=== PATIENT | female | born 1995 | race Caucasian/White ===

== ENCOUNTER → 2016-10-09 | Outpatient (REF) | payer BC | LOC: M SFHCWAGY 13:28 | PROVIDERS: ATTEND Nurse Practitioner Women's Health | DX: Z12.4 Encounter for screening for malignant neoplasm of cervix (principal) ==

== ENCOUNTER → 2017-10-11 | Outpatient (REF) | payer BC | LOC: M SFHCWAGY 15:08 | DX: Z12.4 Encounter for screening for malignant neoplasm of cervix (principal) | CPT/HCPCS: G0123 ==

== ENCOUNTER 2020-03-25 13:27 | Emergency (ER) | payer BC ==
[~2020-03-25] VITALS: Ht 167.6 cm; Wt 96.3 kg
[2020-03-25] MEDS ORDERED: LOW-1TAB2 PO (13:34)
[2020-03-25] MEDS ORDERED: ONDANSETRON 4MG/2ML VIAL IV ONE (14:30)
[2020-03-25 14:36] LABS: BASO % 0.4 % (0.0-1.0); EOS # 0.1 10^3/uL (0.0-0.5); EOS % 0.9 % (0.0-3.0); HEMOGLOBIN 13.3 g/dl (12.0-15.5); LYMPH # 1.6 10^3/uL (1.5-5.0); LYMPH % 22.4 % (24.0-44.0); MEAN CORPUSCULAR HEMOGLOBIN 30.4 pg (27.0-33.0); MEAN CORPUSCULAR HGB CONC 34.1 g/dl (32.0-36.5); MONO # 0.5 10^3/uL (0.0-0.8); MONO % 6.4 % (0.0-5.0); NEUTROPHILS # 4.9 10^3/uL (1.5-8.5); NEUTROPHILS % 69.6 % (36.0-66.0); PLATELET COUNT, AUTOMATED 219 10^3/uL (150-450); RED BLOOD COUNT 4.38 10^6/uL (4.00-5.40)
[2020-03-25 15:01] LABS: ALBUMIN 3.8 GM/DL (3.2-5.2); BILIRUBIN,DIRECT 0.1 MG/DL (0.0-0.2); BILIRUBIN,TOTAL 0.3 MG/DL (0.2-1.0); C REACTIVE PROTEIN QUANTITATIV 0.55 MG/DL (0.00-0.30); TOTAL PROTEIN 7.9 GM/DL (6.4-8.2)
[2020-03-25 16:12] LABS: ERYTHROCYTE SEDIMENTATION RATE 26 mm/hr (0-20)
[2020-03-25] MEDS ORDERED: ONDA4TAB6 PO (16:37)
[2020-03-25] MEDS ORDERED: PROT20TA11 PO (16:37)
[2020-03-25 17:13] VITALS: BP 125/65
== END 2020-03-25 17:17 | disposition home or self-care (01) ==
LOC: M ED 13:27
DX: R11.2 Nausea with vomiting, unspecified (principal); R19.7 Diarrhea, unspecified; K29.70 Gastritis, unspecified, without bleeding; Z88.1 Allergy status to other antibiotic agents
CPT/HCPCS: 80047; 80076; 83690; 84702; 85025; 85652; 86140; 96374; 99284; J2405

== ENCOUNTER → 2020-03-27 | Outpatient (REF) | payer BC ==
[~2020-03-27] MED LIST: DICY10CA13 PO; LOW-1TAB2 PO; ONDA4TAB6 PO; PROT20TA11 PO; VANC1CAP6 PO
== END ==
LOC: M LAB 19:33
PROVIDERS: ATTEND Nurse Practitioner Family
DX: R19.7 Diarrhea, unspecified (principal)

== ENCOUNTER → 2020-05-03 | Outpatient (REF) | payer BC | LOC: M SFHCCLAY 11:20 | PROVIDERS: ATTEND Nurse Practitioner Family | DX: R35.0 Frequency of micturition (principal) ==

== ENCOUNTER → 2020-05-25 | Outpatient (REF) | payer BC | LOC: M SFHCCLAY 16:12 | PROVIDERS: ATTEND Family Medicine | DX: A04.72 Enterocolitis due to Clostridium difficile, not specified as recurrent (principal) ==

== ENCOUNTER 2020-05-26 14:34 | Emergency (ER) | payer BC ==
[~2020-05-26] VITALS: Ht 167.6 cm; Wt 95.3 kg
[2020-05-26 14:34] VITALS: BP 143/87
[~2020-05-26 14:34] MED LIST changes: -DICY10CA13 PO; -VANC1CAP6 PO
[2020-05-26] MEDS ORDERED: NS 1,000 ML IV ONE (16:15)
[2020-05-26] MEDS ORDERED: DICYCLOMINE 10 MG CAP PO ONE (16:15)
[2020-05-26 16:59] LABS: BASO % 0.3 % (0.0-1.0); EOS # 0.1 10^3/uL (0.0-0.5); EOS % 0.7 % (0.0-3.0); HEMOGLOBIN 13.8 g/dl (12.0-15.5); LYMPH # 1.7 10^3/uL (1.5-5.0); MEAN CORPUSCULAR HEMOGLOBIN 29.4 pg (27.0-33.0); MEAN CORPUSCULAR HGB CONC 32.9 g/dl (32.0-36.5); MEAN CORPUSCULAR VOLUME 89.6 fl (80.0-96.0); MONO # 0.9 10^3/uL (0.0-0.8); MONO % 7.9 % (0.0-5.0); NEUTROPHILS # 8.7 10^3/uL (1.5-8.5); NEUTROPHILS % 75.6 % (36.0-66.0); PLATELET COUNT, AUTOMATED 224 10^3/uL (150-450); RED BLOOD COUNT 4.69 10^6/uL (4.00-5.40); WHITE BLOOD COUNT 11.4 10^3/uL (4.0-10.0)
--- NOTE | 2020-05-26 17:20 | REP ---
INDICATION: Abdominal Pain COMPARISON: None. TECHNIQUE: Upright view of the chest with supine and upright views of the abdomen and pelvis. FINDINGS: Frontal upright view of the chest demonstrates no acute cardiopulmonary process or free air below the diaphragm to suspect pneumoperitoneum. Supine and upright views of the abdomen and pelvis demonstrate nonspecific bowel gas pattern without obstruction or perforation. No organomegaly. No abnormal calcifications. Skeletal structures normal for age. IMPRESSION: Nonspecific bowel gas pattern. <Electronically signed by Bunny Putnam > 05/26/20 [id number]
[2020-05-26 17:21] LABS: ALBUMIN 3.7 GM/DL (3.2-5.2); BILIRUBIN,DIRECT 0.1 MG/DL (0.0-0.2); BILIRUBIN,TOTAL 0.4 MG/DL (0.2-1.0); TOTAL PROTEIN 8.2 GM/DL (6.4-8.2)
[2020-05-26] MEDS ORDERED: ISOVUE-370 76% 100ML VIAL As Ordered ONE (18:06)
[2020-05-26] MEDS ORDERED: KETOROLAC 30 MG/ML 1ML VIAL IV ONE (18:15)
--- NOTE | 2020-05-26 18:41 | REPVR ---
PROCEDURE INFORMATION: Exam: CT Abdomen And Pelvis With Contrast Exam date and time: 05/26/2020 6:14 PM Age: 24 years old Clinical indication: Abnormal findings; Abnormal lab test; Elevated wbc; Additional info: Elev. Wbc, diffuse abd pain, diarrhea TECHNIQUE: Imaging protocol: Computed tomography of the abdomen and pelvis with intravenous contrast. Axial, coronal and sagittal reformatted images were created and reviewed. Radiation optimization: All CT scans at this facility use at least one of these dose optimization techniques: automated exposure control; mA and/or kV adjustment per patient size (includes targeted exams where dose is matched to clinical indication); or iterative reconstruction. Contrast material: ISOVUE 370; Contrast volume: 100 ml; Contrast route: INTRAVENOUS (IV); COMPARISON: CT ABD PELVIS W/O CONTRAST 06/07/2015 8:27 AM FINDINGS: Mediastinal space: Small hiatal hernia. Liver: Unremarkable. Gallbladder and bile ducts: No radiodense gallstones. No biliary ductal dilatation. Pancreas: Unremarkable. Spleen: Unremarkable. Adrenal glands: Normal. No mass. Kidneys and ureters: No mass. No radiodense calculi. No hydronephrosis. Stomach and bowel: Mild, diffuse colonic wall thickening with associated mural and pericolonic edema. No obstruction. No pneumatosis. Appendix: Normal. Intraperitoneal space: No free fluid. No organized fluid collection. No free air. Vasculature: Unremarkable. No aneurysm. Lymph nodes: Small mesenteric lymph nodes, likely reactive. No pathologically enlarged lymph nodes. Urinary bladder: Mild circumferential urinary bladder wall thickening, likely secondary to underdistention. Reproductive: Unremarkable. Bones/joints: No acute osseous abnormality. Soft tissues: Unremarkable. IMPRESSION: 1. Mild nonspecific pancolitis, as described above. 2. Additional findings, as above. Electronically signed by: Dakota Rizo On 05/26/2020 18:40:36 PM
[2020-05-26] MEDS ORDERED: VANCOMYCIN ORAL SOL 250MG/5ML ORAL SYRINGE PO STA (18:57)
[2020-05-26] MEDS ORDERED: DICY10CA13 PO (19:02)
[2020-05-26] MEDS ORDERED: VANC1CAP6 PO (19:02)
== END 2020-05-26 19:39 | disposition home or self-care (01) ==
LOC: M ED 14:34
DX: K51.019 Ulcerative (chronic) pancolitis with unspecified complications (principal); R10.84 Generalized abdominal pain; R19.7 Diarrhea, unspecified; Z88.2 Allergy status to sulfonamides; Z79.899 Other long term (current) drug therapy
CPT/HCPCS: 74021; 74177; 80047; 80076; 81001; 83605; 83690; 84702; 85025; 96361; 96374; 99283; J1885; Q9967

== ENCOUNTER → 2020-08-19 | Outpatient (REF) | payer BC ==
[~2020-08-19] MED LIST changes: +DICY10CA13 PO; +VANC1CAP6 PO
[2020-08-19 16:34] LABS: HEMATOCRIT 41.7 % (36.0-47.0); HEMOGLOBIN 13.8 g/dl (12.0-15.5); MEAN CORPUSCULAR HEMOGLOBIN 30.1 pg (27.0-33.0); MEAN CORPUSCULAR HGB CONC 33.1 g/dl (32.0-36.5); MEAN CORPUSCULAR VOLUME 90.8 fl (80.0-96.0); PLATELET COUNT, AUTOMATED 208 10^3/uL (150-450); RED BLOOD COUNT 4.59 10^6/uL (4.00-5.40)
[2020-08-19 17:11] LABS: BLOOD UREA NITROGEN 9 MG/DL (7-18); CALCIUM LEVEL 9.6 MG/DL (8.5-10.1); CARBON DIOXIDE LEVEL 29 MEQ/L (21-32); CHLORIDE LEVEL 107 MEQ/L (98-107); CREATININE FOR GFR 0.84 MG/DL (0.55-1.30); FREE T4 0.93 NG/DL (0.76-1.46); GLOMERULAR FILTRATION RATE > 60.0 (>60); GLUCOSE, FASTING 92 MG/DL (70-100); POTASSIUM SERUM 4.7 MEQ/L (3.5-5.1); SODIUM LEVEL 141 MEQ/L (136-145); THYROID STIMULATING HORMONE 0.888 uIU/ML (0.358-3.740)
== END ==
LOC: M SFHCCLAY 11:47
PROVIDERS: ATTEND Family Medicine
DX: F32.0 Major depressive disorder, single episode, mild (principal)

== ENCOUNTER → 2020-09-12 | Outpatient (REF) | payer BC ==
[2020-09-12 12:21] LABS: BLOOD UREA NITROGEN 10 MG/DL (7-18); CALCIUM LEVEL 9.4 MG/DL (8.5-10.1); CARBON DIOXIDE LEVEL 26 MEQ/L (21-32); CHLORIDE LEVEL 107 MEQ/L (98-107); CREATININE FOR GFR 0.98 MG/DL (0.55-1.30); GLOMERULAR FILTRATION RATE > 60.0 (>60); GLUCOSE, FASTING 121 MG/DL (70-100); POTASSIUM SERUM 3.9 MEQ/L (3.5-5.1); SODIUM LEVEL 140 MEQ/L (136-145)
== END ==
LOC: M SFHCCLAY 08:56
PROVIDERS: ATTEND Family Medicine
DX: F32.0 Major depressive disorder, single episode, mild (principal)

== ENCOUNTER → 2020-12-14 | Outpatient (REF) | payer BC | LOC: M SFHCWAGY 12:52 | PROVIDERS: ATTEND Nurse Practitioner Women's Health | DX: Z11.3 Encounter for screening for infections with a predominantly sexual mode of transmission (principal); Z12.4 Encounter for screening for malignant neoplasm of cervix; Z01.419 Encounter for gynecological examination (general) (routine) without abnormal findings ==

== ENCOUNTER → 2021-10-19 | Outpatient (REF) | payer BC, OTHER | LOC: M SFHCCLAY 15:29 | PROVIDERS: ATTEND Family Medicine | DX: K52.9 Noninfective gastroenteritis and colitis, unspecified (principal) ==

== ENCOUNTER → 2021-10-26 | Outpatient (REF) | payer BC, OTHER ==
[2021-10-26 17:14] LABS: CLOSTRIDIUM DIFFICILE PCR POSITIVE (NEGATIVE)
== END ==
LOC: M SFHCPLAZ 15:44
PROVIDERS: ATTEND Family Medicine
DX: R19.7 Diarrhea, unspecified (principal)

== ENCOUNTER 2022-03-30 07:51 | Emergency (ER) | payer OTHER ==
[~2022-03-30] VITALS: Ht 167.6 cm; Wt 86.4 kg
[2022-03-30] MEDS ORDERED: NS 1,000 ML IV ONE (08:10)
[2022-03-30] MEDS ORDERED: MORPHINE 2 MG/ML 1ML VIAL IV PRN (08:10)
[2022-03-30] MEDS ORDERED: ONDANSETRON 4MG 2ML VIAL IV ONE (08:10)
[2022-03-30] MEDS ORDERED: KETOROLAC 30 MG/ML 1ML VIAL IV ONE (08:10)
[2022-03-30] MEDS ORDERED: ISOVUE-370 76% 100ML VIAL As Ordered ONE (08:35)
[2022-03-30 08:44] LABS: BASO % 0.6 % (0.0-1.0); EOS # 0.2 10^3/uL (0.0-0.5); HEMATOCRIT 37.4 % (36.0-47.0); HEMOGLOBIN 12.6 g/dl (12.0-15.5); LYMPH # 1.1 10^3/uL (1.5-5.0); LYMPH % 20.7 % (24.0-44.0); MEAN CORPUSCULAR HEMOGLOBIN 29.9 pg (27.0-33.0); MEAN CORPUSCULAR HGB CONC 33.7 g/dl (32.0-36.5); MEAN CORPUSCULAR VOLUME 88.6 fl (80.0-96.0); MONO # 0.7 10^3/uL (0.0-0.8); MONO % 12.8 % (2.0-8.0); NEUTROPHILS # 3.4 10^3/uL (1.5-8.5); NEUTROPHILS % 61.7 % (36.0-66.0); PLATELET COUNT, AUTOMATED 215 10^3/uL (150-450); RED BLOOD COUNT 4.22 10^6/uL (4.00-5.40); WHITE BLOOD COUNT 5.5 10^3/uL (4.0-10.0)
[2022-03-30 08:55] LABS: INR 0.92; PARTIAL THROMBOPLASTIN TIME 27.9 SECONDS (25.9-37.0); PROTHROMBIN TIME 12.7 SECONDS (12.7-14.5)
[2022-03-30 09:28] LABS: ALBUMIN 3.6 GM/DL (3.2-5.2); BILIRUBIN,DIRECT 0.1 MG/DL (0.0-0.2); BILIRUBIN,TOTAL 0.4 MG/DL (0.2-1.0); TOTAL PROTEIN 7.4 GM/DL (6.4-8.2)
[2022-03-30] MEDS ORDERED: ONDA4TAB6 PO (09:48)
[2022-03-30] MEDS ORDERED: KETO10TAB PO (09:49)
[2022-03-30] MEDS ORDERED: PERC5TAB12 PO (09:49)
[2022-03-30 10:03] VITALS: BP 102/55
== END 2022-03-30 11:05 | disposition home or self-care (01) ==
LOC: M ED 07:51
DX: K80.20 Calculus of gallbladder without cholecystitis without obstruction (principal); K76.0 Fatty (change of) liver, not elsewhere classified; K44.9 Diaphragmatic hernia without obstruction or gangrene; Z86.718 Personal history of other venous thrombosis and embolism; Z88.2 Allergy status to sulfonamides; Z79.899 Other long term (current) drug therapy
CPT/HCPCS: 71045; 71275; 74177; 76705; 80047; 80076; 82150; 83690; 84484; 85025; 85610; 85730; 87040; 93005; 96361; 96374; 96375; 99284; J1885; J2405; Q9967

== ENCOUNTER 2022-04-13 01:50 | Emergency (ER) | payer OTHER ==
[~2022-04-13] VITALS: Ht 167.6 cm; Wt 86.4 kg
[~2022-04-13 01:50] MED LIST changes: +KETO10TAB PO; +PERC5TAB12 PO
[2022-04-13] MEDS ORDERED: ONDANSETRON 4MG 2ML VIAL IV ONE ×2 (02:30→03:50)
[2022-04-13] MEDS ORDERED: MORPHINE 4 MG/ML 1ML VIAL/SYRINGE IV ONE ×2 (02:30→03:50)
[2022-04-13] MEDS ORDERED: KETOROLAC 30 MG/ML 1ML VIAL IV ONE (02:30)
[2022-04-13 02:51] LABS: BASO % 0.4 % (0.0-1.0); EOS # 0.1 10^3/uL (0.0-0.5); EOS % 2.3 % (0.0-3.0); HEMATOCRIT 37.7 % (36.0-47.0); HEMOGLOBIN 12.8 g/dl (12.0-15.5); LYMPH # 1.7 10^3/uL (1.5-5.0); LYMPH % 32.4 % (24.0-44.0); MEAN CORPUSCULAR HEMOGLOBIN 29.4 pg (27.0-33.0); MEAN CORPUSCULAR VOLUME 86.5 fl (80.0-96.0); MONO # 0.6 10^3/uL (0.0-0.8); MONO % 11.7 % (2.0-8.0); NEUTROPHILS # 2.8 10^3/uL (1.5-8.5); PLATELET COUNT, AUTOMATED 209 10^3/uL (150-450); RED BLOOD COUNT 4.36 10^6/uL (4.00-5.40); WHITE BLOOD COUNT 5.2 10^3/uL (4.0-10.0)
[2022-04-13 03:26] LABS: ALBUMIN 3.8 GM/DL (3.2-5.2); ALT/SGPT 10 U/L (12-78); BILIRUBIN,DIRECT 0.1 MG/DL (0.0-0.2); BILIRUBIN,TOTAL 0.3 MG/DL (0.2-1.0); BLOOD UREA NITROGEN 15 MG/DL (7-18); CALCIUM LEVEL 9.2 MG/DL (8.5-10.1); CARBON DIOXIDE LEVEL 26 MEQ/L (21-32); CHLORIDE LEVEL 107 MEQ/L (98-107); CREATININE FOR GFR 0.88 MG/DL (0.55-1.30); GLOMERULAR FILTRATION RATE > 60.0 (>60); GLUCOSE, FASTING 99 MG/DL (70-100); LIPASE 114 U/L (73-393); SODIUM LEVEL 139 MEQ/L (136-145); TOTAL PROTEIN 7.9 GM/DL (6.4-8.2)
[2022-04-13] MEDS ORDERED: METOCLOPRAMIDE INJ 10MG/2ML VIAL (J2765 PER 1) IV ONE (05:40)
[2022-04-13] MEDS ORDERED: ONDA4TAB6 PO (07:35)
[2022-04-13] MEDS ORDERED: KETO10TAB PO (07:37)
[2022-04-13 07:43] VITALS: BP 130/76
== END 2022-04-13 07:44 | disposition home or self-care (01) ==
LOC: M ED 01:50
DX: K80.51 Calculus of bile duct without cholangitis or cholecystitis with obstruction (principal); Z87.442 Personal history of urinary calculi; K58.9 Irritable bowel syndrome, unspecified; F10.10 Alcohol abuse, uncomplicated; Z88.2 Allergy status to sulfonamides; Z79.899 Other long term (current) drug therapy
CPT/HCPCS: 76705; 80048; 80076; 83690; 85025; 96374; 96375; 96376; 99284; J1885; J2270; J2405; J2765

== ENCOUNTER 2022-05-02 12:28 | Emergency (ER) | payer OTHER ==
[~2022-05-02] VITALS: Ht 167.6 cm; Wt 81.8 kg
[2022-05-02] MEDS ORDERED: MESA1.2T (12:41)
[2022-05-02] MEDS ORDERED: NS 1,000 ML IV ONE (13:50)
[2022-05-02] MEDS ORDERED: MORPHINE 4 MG/ML 1ML VIAL/SYRINGE IV ONE (13:50)
[2022-05-02] MEDS ORDERED: ONDANSETRON 4MG 2ML VIAL IV ONE (13:50)
[2022-05-02 14:03] LABS: BASO % 0.1 % (0.0-1.0); EOS # 0.1 10^3/uL (0.0-0.5); EOS % 0.9 % (0.0-3.0); HEMATOCRIT 39.8 % (36.0-47.0); HEMOGLOBIN 13.1 g/dl (12.0-15.5); LYMPH % 14.6 % (24.0-44.0); MEAN CORPUSCULAR HGB CONC 32.9 g/dl (32.0-36.5); MEAN CORPUSCULAR VOLUME 88.1 fl (80.0-96.0); MONO # 0.4 10^3/uL (0.0-0.8); MONO % 5.5 % (2.0-8.0); NEUTROPHILS # 5.3 10^3/uL (1.5-8.5); NEUTROPHILS % 78.6 % (36.0-66.0); PLATELET COUNT, AUTOMATED 182 10^3/uL (150-450); RED BLOOD COUNT 4.52 10^6/uL (4.00-5.40); WHITE BLOOD COUNT 6.7 10^3/uL (4.0-10.0)
[2022-05-02 14:31] LABS: BILIRUBIN,DIRECT 0.1 MG/DL (0.0-0.2); BILIRUBIN,TOTAL 0.4 MG/DL (0.2-1.0); TOTAL PROTEIN 8.2 GM/DL (6.4-8.2)
[2022-05-02] MEDS ORDERED: ISOVUE-370 76% 100ML VIAL As Ordered ONE (14:31)
[2022-05-02] MEDS ORDERED: ONDA4TAB6 PO (15:47)
[2022-05-02] MEDS ORDERED: KETO10TAB PO (15:48)
[2022-05-02 15:52] VITALS: BP 129/77
[2022-05-02] MEDS ORDERED: FLOM0.4C39 PO (23:42)
== END 2022-05-02 16:06 | disposition home or self-care (01) ==
LOC: EDBD 12:28 → M ED 12:28
DX: N20.1 Calculus of ureter (principal); N23 Unspecified renal colic; K80.20 Calculus of gallbladder without cholecystitis without obstruction; R31.9 Hematuria, unspecified; Z87.448 Personal history of other diseases of urinary system; Z88.2 Allergy status to sulfonamides; Z79.899 Other long term (current) drug therapy; Z79.01 Long term (current) use of anticoagulants
CPT/HCPCS: 74177; 80047; 80076; 81000; 81015; 83690; 84702; 85025; 96361; 96374; 96375; 99284; J2270; J2405; Q9967

== ENCOUNTER → 2022-06-07 | Outpatient (CLI) | payer OTHER ==
[~2022-06-07] MED LIST changes: +FLOM0.4C39 PO; +MESA1.2T
== END ==
LOC: M LABSMTC 11:46
PROVIDERS: ATTEND Anesthesiology
DX: Z01.812 Encounter for preprocedural laboratory examination (principal); Z11.52 Encounter for screening for COVID-19

== ENCOUNTER → 2022-06-08 | Outpatient (REF) | payer OTHER ==
[2022-06-08 15:00] LABS: HEMOGLOBIN 12.3 g/dl (12.0-15.5); MEAN CORPUSCULAR HEMOGLOBIN 29.7 pg (27.0-33.0); MEAN CORPUSCULAR HGB CONC 33.2 g/dl (32.0-36.5); MEAN CORPUSCULAR VOLUME 89.4 fl (80.0-96.0); PLATELET COUNT, AUTOMATED 245 10^3/uL (150-450); RED BLOOD COUNT 4.14 10^6/uL (4.00-5.40); WHITE BLOOD COUNT 6.4 10^3/uL (4.0-10.0)
[2022-06-08 15:20] LABS: BLOOD UREA NITROGEN 12 MG/DL (7-18); CARBON DIOXIDE LEVEL 27 MEQ/L (21-32); CHLORIDE LEVEL 108 MEQ/L (98-107); CREATININE FOR GFR 0.73 MG/DL (0.55-1.30); GLOMERULAR FILTRATION RATE > 60.0 (>60); GLUCOSE, FASTING 81 MG/DL (70-100); POTASSIUM SERUM 4.8 MEQ/L (3.5-5.1); SODIUM LEVEL 140 MEQ/L (136-145)
== END ==
LOC: M SFHCCLAY 09:47 → M LAB 09:47
PROVIDERS: ATTEND Family Medicine
DX: K52.9 Noninfective gastroenteritis and colitis, unspecified (principal); Z86.718 Personal history of other venous thrombosis and embolism

== ENCOUNTER 2022-06-12 09:00 | Day surgery (SDC) | payer OTHER ==
[~2022-06-12] VITALS: Ht 167.6 cm; Wt 100.9 kg
[~2022-06-12 09:00] MED LIST changes: +ceFAZolin SOD 2 GM in IV 1 EA IV ONE
[2022-06-12] MEDS ORDERED: LR 1,000 ML IV SCH ×2 (09:35→12:35)
[2022-06-12] MEDS ORDERED: BUPIVACAINE/EPIN 0.25% 30 ML VIAL As Ordered ONE (11:02)
[2022-06-12] MEDS ORDERED: fentaNYL 100 MCG/2 ML INJECTION As Ordered ONE ×2 (11:18→12:05)
[2022-06-12] MEDS ORDERED: propofoL 200 MG/20 ML VIAL As Ordered ONE ×3 (11:20→11:23)
[2022-06-12] MEDS ORDERED: MIDAZOLAM INJ 2MG/2ML VIAL (J2250 PER 1MG) As Ordered ONE (11:20)
[2022-06-12] MEDS ORDERED: SUGAMMADEX SODIUM 500 MG/5 ML VIAL (BRIDION) As Ordered ONE (12:20)
[2022-06-12] MEDS ORDERED: ONDANSETRON 4MG 2ML VIAL As Ordered ONE (12:28)
[2022-06-12] MEDS ORDERED: dexameTHASONE 4 MG/ML 1ML VIAL (J1100 PER 1MG) As Ordered ONE (12:28)
[2022-06-12] MEDS ORDERED: METOCLOPRAMIDE INJ 10MG/2ML VIAL (J2765 PER 1) As Ordered ONE (12:30)
[2022-06-12] MEDS ORDERED: KETOROLAC 60MG 2ML VIAL As Ordered ONE (12:30)
[2022-06-12] MEDS ORDERED: HYDROMORPHONE HCL 0.5 MG/ 0.5 ML SYRINGE (J1170 PER 1) IV PRN (12:35)
[2022-06-12] MEDS ORDERED: fentaNYL 100 MCG/2 ML INJECTION IV PRN (12:35)
[2022-06-12] MEDS ORDERED: METOCLOPRAMIDE INJ 10MG/2ML VIAL (J2765 PER 1) IV PRN (12:35)
[2022-06-12] MEDS ORDERED: ONDANSETRON 4MG 2ML VIAL IV PRN (12:35)
[2022-06-12] MEDS ORDERED: NS 1,000 ML IV SCH (13:15)
[2022-06-12] MEDS: oxyCODONE 5MG TAB PO PRN ×2 (13:19→13:48)
[2022-06-12 14:33] VITALS: BP 121/68
== END 2022-06-12 14:38 | disposition home or self-care (01) ==
LOC: M SDC 09:00
PROVIDERS: ATTEND Surgery
DX: K80.10 Calculus of gallbladder with chronic cholecystitis without obstruction (principal); K58.8 Other irritable bowel syndrome; Z86.718 Personal history of other venous thrombosis and embolism; Z79.899 Other long term (current) drug therapy; Z88.2 Allergy status to sulfonamides
CPT/HCPCS: 47562; 81025; 88304; J0690; J1100; J1885; J2250; J2405; J2765; J3010

== ENCOUNTER → 2023-02-12 | Outpatient (REF) | payer OTHER ==
[~2023-02-12] MED LIST changes: +DICY-61 PO; -DICY10CA13 PO; -ceFAZolin SOD 2 GM in IV 1 EA IV ONE
[2023-02-12 12:11] LABS: BASO % 0.8 % (0.0-1.0); EOS # 0.5 10^3/uL (0.0-0.5); EOS % 10.5 % (0.0-3.0); HEMATOCRIT 37.6 % (36.0-47.0); HEMOGLOBIN 12.5 g/dl (12.0-15.5); LYMPH # 1.8 10^3/uL (1.5-5.0); LYMPH % 34.9 % (24.0-44.0); MEAN CORPUSCULAR HGB CONC 33.2 g/dl (32.0-36.5); MEAN CORPUSCULAR VOLUME 90.2 fl (80.0-96.0); MONO # 0.5 10^3/uL (0.0-0.8); MONO % 9.1 % (2.0-8.0); NEUTROPHILS # 2.3 10^3/uL (1.5-8.5); NEUTROPHILS % 44.5 % (36.0-66.0); PLATELET COUNT, AUTOMATED 250 10^3/uL (150-450); RED BLOOD COUNT 4.17 10^6/uL (4.00-5.40); WHITE BLOOD COUNT 5.2 10^3/uL (4.0-10.0)
[2023-02-12 12:36] LABS: ALBUMIN 3.6 G/DL (3.2-5.2); ALKALINE PHOSPHATASE 105 U/L (46-116); ALT/SGPT < 9 U/L (7.0-40); AST/SGOT 11 U/L (<34); BILIRUBIN,TOTAL 0.3 MG/DL (0.3-1.2); BLOOD UREA NITROGEN 10 MG/DL (9-23); CALCIUM LEVEL 8.5 MG/DL (8.5-10.1); CARBON DIOXIDE LEVEL 24 MMOL/L (20-31); CHLORIDE LEVEL 108 MMOL/L (98-107); CREATININE FOR GFR 0.76 MG/DL (0.55-1.30); GLOMERULAR FILTRATION RATE > 60.0 (>60); GLUCOSE, FASTING 83 MG/DL (60-100); IRON (FE) 36 UG/DL (50-170); PERCENT SATURATION 10.1 % (13.2-45.0); POTASSIUM SERUM 4.6 MMOL/L (3.5-5.1); SODIUM LEVEL 141 MMOL/L (136-145); TOTAL IRON BINDING CAPACITY 355 UG/DL (250-425); TOTAL PROTEIN 7.2 G/DL (5.7-8.2)
[2023-02-12 12:37] LABS: HCG, SERUM QUANTITATIVE < 2.6 MIU/ML (<4.2); LUTEINIZING HORMONE 4.6 mIU/ML; THYROID STIMULATING HORMONE 2.473 uIU/ML (0.55-4.78)
[2023-02-12 12:38] LABS: FERRITIN 19.5 NG/ML (7.3-270.7); FOLLICLE STIMULATING HORMONE 7.5 mIU/ML
== END ==
LOC: M SFHCCLAY 09:03
PROVIDERS: ATTEND Physician Assistant
DX: N92.1 Excessive and frequent menstruation with irregular cycle (principal); R53.83 Other fatigue

== ENCOUNTER → 2023-03-18 | Outpatient (CLI) | payer OTHER | LOC: M WUC 10:58 | PROVIDERS: ATTEND Nurse Practitioner Family | DX: M25.572 Pain in left ankle and joints of left foot (principal) ==

== ENCOUNTER 2023-03-25 19:52 | Emergency (ER) | payer OTHER ==
[~2023-03-25] VITALS: Ht 167.6 cm; Wt 107.3 kg
[2023-03-25 19:53] VITALS: BP 129/78; TEMP 98.1
[2023-03-25] MEDS ORDERED: LORA-674 PO (19:58)
[2023-03-25] MEDS ORDERED: MOME13HF8 (19:58)
[2023-03-25] MEDS ORDERED: ELIQ5TAB PO (19:58)
[2023-03-25] MEDS ORDERED: VENTAER INH (19:58)
[2023-03-25] MEDS ORDERED: BENZ200C70 (19:58)
[2023-03-25] MEDS ORDERED: FLON1SPR NARES (19:58)
[2023-03-26] MEDS ORDERED: SODIUM CHLORIDE 0.9% 3ML NEB SOLUTION FOR INHALATION INH STA (00:31)
[2023-03-26] MEDS ORDERED: methylPREDNISolone 125MG 2ML VIAL IV ONE (00:35)
[2023-03-26 01:05] LABS: VENOUS BASE EXCESS -4.7 (-2.0-2.0); VENOUS HCO3 21.4 MMOL/L (23.0-27.0); VENOUS O2 SATURATION 67.9 % (60.0-80.0); VENOUS PARTIAL PRESSURE CO2 43.4 mmHg (38.0-50.0); VENOUS PARTIAL PRESSURE O2 36.2 mmHg (30.0-50.0); VENOUS PH 7.311 UNITS (7.330-7.430); VENOUS TOTAL CO2 22.7 MMOL/L (24.0-28.0)
[2023-03-26 01:09] LABS: BASO % 0.4 % (0.0-1.0); EOS # 0.5 10^3/uL (0.0-0.5); EOS % 6.8 % (0.0-3.0); HEMATOCRIT 36.2 % (36.0-47.0); HEMOGLOBIN 12.3 g/dl (12.0-15.5); LYMPH # 2.4 10^3/uL (1.5-5.0); LYMPH % 35.6 % (24.0-44.0); MEAN CORPUSCULAR HEMOGLOBIN 30.1 pg (27.0-33.0); MEAN CORPUSCULAR VOLUME 88.7 fl (80.0-96.0); MONO # 0.6 10^3/uL (0.0-0.8); NEUTROPHILS # 3.2 10^3/uL (1.5-8.5); NEUTROPHILS % 47.9 % (36.0-66.0); PLATELET COUNT, AUTOMATED 240 10^3/uL (150-450); RED BLOOD COUNT 4.08 10^6/uL (4.00-5.40); WHITE BLOOD COUNT 6.8 10^3/uL (4.0-10.0)
[2023-03-26] MEDS ORDERED: ISOVUE-370 76% 100ML VIAL As Ordered ONE (01:10)
[2023-03-26] MEDS ORDERED: NEBU1EAC78 MC (02:10)
[2023-03-26] MEDS ORDERED: SODI3NEB INH (02:10)
[2023-03-26] MEDS ORDERED: PRED20TA PO (02:10)
[2023-03-26 02:28] VITALS: O2SAT 98
== END 2023-03-26 02:30 | disposition home or self-care (01) ==
LOC: M ED 19:52
DX: R05.9 Cough, unspecified (principal); Z86.718 Personal history of other venous thrombosis and embolism; Z79.01 Long term (current) use of anticoagulants; Z79.52 Long term (current) use of systemic steroids; Z79.899 Other long term (current) drug therapy; Z88.2 Allergy status to sulfonamides; Z86.16 Personal history of COVID-19
CPT/HCPCS: 71046; 71260; 80047; 82803; 84702; 85025; 96374; 99284; J2930; Q9967

== ENCOUNTER → 2023-05-14 | Outpatient (REF) | payer OTHER ==
[~2023-05-14] MED LIST changes: +BENZ200C70; +ELIQ5TAB PO; +FLON1SPR NARES; +LORA-1041 PO; +MOME13HF8; +NEBU1EAC78 MC; +PRED20TA PO; +SODI3NEB INH; +VENTAER INH
== END ==
LOC: M SFHCWAGY 18:28
PROVIDERS: ATTEND Specialist
DX: Z12.4 Encounter for screening for malignant neoplasm of cervix (principal)
CPT/HCPCS: 87624; G0123

== ENCOUNTER → 2023-07-25 | Outpatient (CLI) | payer OTHER ==
[2023-07-25 14:13] LABS: HEMATOCRIT 38.6 % (36.0-47.0); HEMOGLOBIN 12.9 g/dl (12.0-15.5); MEAN CORPUSCULAR HGB CONC 33.4 g/dl (32.0-36.5); MEAN CORPUSCULAR VOLUME 89.8 fl (80.0-96.0); PLATELET COUNT, AUTOMATED 241 10^3/uL (150-450); WHITE BLOOD COUNT 6.5 10^3/uL (4.0-10.0)
[2023-07-25 14:35] LABS: HIV 1&2 SCREEN NEGATIVE (NEGATIVE)
[2023-07-25 14:43] LABS: HEPATITIS C VIRUS ABY INDEX 0.12 INDEX (<0.8)
[2023-07-25 15:47] LABS: CHLAMYDIA DNA AMPLIFICATION NEGATIVE (NEGATIVE); GC DNA AMPLIFICATION NEGATIVE (NEGATIVE)
== END ==
LOC: M PLALAB 09:05
PROVIDERS: ATTEND Specialist
DX: Z34.81 Encounter for supervision of other normal pregnancy, first trimester (principal); Z3A.00 Weeks of gestation of pregnancy not specified

== ENCOUNTER → 2023-10-24 | Outpatient (CLI) | payer OTHER | LOC: M RAD 16:12 | PROVIDERS: ATTEND Obstetrics & Gynecology | DX: Z34.02 Encounter for supervision of normal first pregnancy, second trimester (principal); Z3A.21 21 weeks gestation of pregnancy ==

== ENCOUNTER → 2023-11-22 | Outpatient (CLI) | payer OTHER | LOC: M WHC 08:00 | PROVIDERS: ATTEND Advanced Practice Midwife | DX: Z34.02 Encounter for supervision of normal first pregnancy, second trimester (principal) ==

== ENCOUNTER → 2023-11-26 | Outpatient (CLI) | payer OTHER ==
[2023-11-26 15:36] LABS: HEMATOCRIT 30.5 % (36.0-47.0); HEMOGLOBIN 10.5 g/dl (12.0-15.5); MEAN CORPUSCULAR HEMOGLOBIN 30.3 pg (27.0-33.0); MEAN CORPUSCULAR HGB CONC 34.4 g/dl (32.0-36.5); MEAN CORPUSCULAR VOLUME 88.2 fl (80.0-96.0); PLATELET COUNT, AUTOMATED 229 10^3/uL (150-450); RED BLOOD COUNT 3.46 10^6/uL (4.00-5.40); WHITE BLOOD COUNT 10.1 10^3/uL (4.0-10.0)
[2023-11-26 17:09] LABS: GC DNA AMPLIFICATION NEGATIVE (NEGATIVE)
== END ==
LOC: M PLALAB 13:09
PROVIDERS: ATTEND Advanced Practice Midwife
DX: Z34.02 Encounter for supervision of normal first pregnancy, second trimester (principal); Z3A.00 Weeks of gestation of pregnancy not specified

== ENCOUNTER 2023-12-02 10:31 | Outpatient (CLI) | payer OTHER ==
[~2023-12-02] VITALS: Ht 167.6 cm; Wt 100.2 kg
[2023-12-02 10:56] VITALS: BP 105/63
[2023-12-02] MEDS ORDERED: LOVE1INJ SC (11:00)
[2023-12-02] MEDS ORDERED: PRENTAB9 PO (11:00)
== END 2023-12-02 11:55 | disposition home or self-care (01) ==
LOC: M LDO 10:31
PROVIDERS: ATTEND Advanced Practice Midwife
DX: O36.8130 Decreased fetal movements, third trimester, not applicable or unspecified (principal); O99.113 Other diseases of the blood and blood-forming organs and certain disorders involving the immune mechanism complicating pregnancy, third trimester; D68.51 Activated protein C resistance; O99.013 Anemia complicating pregnancy, third trimester; D64.9 Anemia, unspecified; Z3A.27 27 weeks gestation of pregnancy
CPT/HCPCS: 59025; G0463

== ENCOUNTER → 2023-12-17 | Outpatient (CLI) | payer OTHER ==
[~2023-12-17] MED LIST changes: +LOVE1INJ SC; +PRENTAB9 PO
== END ==
LOC: M PLALAB 16:27
PROVIDERS: ATTEND Advanced Practice Midwife
DX: Z34.02 Encounter for supervision of normal first pregnancy, second trimester (principal)

== ENCOUNTER → 2023-12-20 | Outpatient (CLI) | payer OTHER | LOC: M LAB 08:14 | PROVIDERS: ATTEND Advanced Practice Midwife | DX: O99.810 Abnormal glucose complicating pregnancy (principal) ==

== ENCOUNTER → 2023-12-26 | Outpatient (CLI) | payer OTHER | LOC: M RAD 16:18 | PROVIDERS: ATTEND Specialist | DX: Z34.82 Encounter for supervision of other normal pregnancy, second trimester (principal); Z3A.30 30 weeks gestation of pregnancy ==

== ENCOUNTER → 2024-02-05 | Outpatient (REF) | payer OTHER ==
[~2024-02-05] MED LIST changes: +ONDA-282 PO; -ONDA4TAB6 PO
== END ==
LOC: M SFHCWAGY 17:11
PROVIDERS: ATTEND Specialist
DX: Z34.03 Encounter for supervision of normal first pregnancy, third trimester (principal)

== ENCOUNTER 2024-02-18 12:54 | Outpatient (CLI) | payer OTHER ==
[~2024-02-18] VITALS: Ht 167.6 cm; Wt 98.8 kg
[2024-02-18] MEDS ORDERED: HOME MED LIST COMPLETE! XX SCH (13:15)
[2024-02-18 13:18] VITALS: BP 116/71
== END 2024-02-18 14:20 | disposition home or self-care (01) ==
LOC: M LDO 12:54
PROVIDERS: ATTEND Obstetrics & Gynecology
DX: O26.893 Other specified pregnancy related conditions, third trimester (principal); O47.1 False labor at or after 37 completed weeks of gestation; O99.13 Other diseases of the blood and blood-forming organs and certain disorders involving the immune mechanism complicating the puerperium; N89.8 Other specified noninflammatory disorders of vagina; Z3A.38 38 weeks gestation of pregnancy; Z88.2 Allergy status to sulfonamides
CPT/HCPCS: 59025; 76815; G0463

== ENCOUNTER 2024-02-23 11:09 | Inpatient (IN) | payer OTHER ==
[2024-02-23] VITALS (30 sets, daily range): BP systolic 93–136; BP diastolic 51–83; TEMP 98.7; O2SAT 97–98
[~2024-02-23] VITALS: Ht 167.6 cm; Wt 96.3 kg
[2024-02-23] MEDS ORDERED: HEPA10009 SC (11:25)
[2024-02-23] MEDS ORDERED: TRANEXAMIC ACID INJection 1,000 MG in NS 100 ML IV PRN (11:35)
[2024-02-23] MEDS ORDERED: METHYLERGONOVINE MALEATE 0.2MG/ML 1ML VIAL IM PRN (11:35)
[2024-02-23] MEDS ORDERED: OXYTOCIN DRIP 30 UNITS in IV 1 EA IV PRN (11:35)
[2024-02-23] MEDS ORDERED: CARBOPROST TROMETHAMINE 250 MCG/ML AMP IM PRN (11:35)
[2024-02-23] MEDS: LACTATED RINGER'S 1000 ML IV PRN (11:51)
[2024-02-23] MEDS: PENICILLIN G POTASSIUM 5 MU IV 5 MU in D5W MINI-BAG PLUS 100 ML IV STA (11:56)
[2024-02-23 11:57] LABS: HEMATOCRIT 32.3 % (36.0-47.0); HEMOGLOBIN 10.7 g/dl (12.0-15.5); MEAN CORPUSCULAR HGB CONC 33.1 g/dl (32.0-36.5); MEAN CORPUSCULAR VOLUME 84.6 fl (80.0-96.0); PLATELET COUNT, AUTOMATED 251 10^3/uL (150-450); RED BLOOD COUNT 3.82 10^6/uL (4.00-5.40)
[2024-02-23] MEDS: ONDANSETRON 4MG 2ML VIAL IV ONE (12:19)
[2024-02-23] MEDS ORDERED: EPIDURAL/PCA KEYS XX PRN (12:35)
[2024-02-23] MEDS ORDERED: LR 500 ML IV PRN (12:35)
[2024-02-23] MEDS ORDERED: diphenhydrAMINE 50MG/ML VIAL IV PRN ×2 (12:35→20:25)
[2024-02-23] MEDS ORDERED: NALOXONE INJ 0.4MG/1ML VIAL IV PRN ×3 (12:35→20:25)
[2024-02-23] MEDS ORDERED: ePHEDrine SULFATE 25 MG/5 ML(5MG/ML) SYRINGE IVP PRN (12:35)
[2024-02-23] MEDS: FENTANYL/ROPIVACAINE/NACL BAG 100 ML EPIDURAL SCH (12:37)
[2024-02-23 12:57] LABS: HEPATITIS C VIRUS ABY INDEX 0.02 INDEX (<0.8)
[2024-02-23] MEDS: PEN G POT 3,000,000 UNIT/50 ML 3,000,000 UNIT in IV 1 EA IV SCH (16:08)
[2024-02-23] MEDS ORDERED: LR 1,000 ML IV SCH (16:45)
[2024-02-23] MEDS: OXYTOCIN DRIP 30 UNITS in IV 1 EA IV SCH ×2 (17:31→21:53)
[2024-02-23] MEDS: ONDANSETRON 4MG 2ML VIAL IV PRN (18:10)
[2024-02-23] MEDS: LR 1,000 ML IV SCH (19:51)
[2024-02-23] MEDS ORDERED: BICITRA 30ML SOLN UDC As Ordered ONE (19:58)
[2024-02-23] MEDS ORDERED: AZITHROMYCIN INJ 500MG VIAL As Ordered ONE (19:58)
[2024-02-23] MEDS ORDERED: ceFAZolin 2 GM/D5W 50 ML IV BAG As Ordered ONE (19:58)
[2024-02-23] MEDS: ceFAZolin SOD 2 GM in IV 1 EA IV ONE (20:00)
[2024-02-23] MEDS: BICITRA 30ML SOLN UDC PO ONE (20:01)
[2024-02-23] MEDS: AZITHROMYCIN INJ 500 MG, VIAL MATE ADAPTER 1 EACH in NS 250 ML IV ONE (20:01)
[2024-02-23] MEDS ORDERED: SLF 3 ML SYR IV SCH (20:25)
[2024-02-23] MEDS ORDERED: NORCO, ANEXSIA 5/325MG TABLET (HYDROcodone/ACETAMINOPHEN) PO PRN (20:25)
[2024-02-23] MEDS ORDERED: **NOTE PATIENT COMMENT** MISC XX SCH (20:25)
[2024-02-23] MEDS ORDERED: METOCLOPRAMIDE INJ 10MG/2ML VIAL IV PRN ×2 (20:25→21:30)
[2024-02-23] MEDS ORDERED: ONDANSETRON 4MG 2ML VIAL IV PRN (20:25)
[2024-02-23 20:52] LABS: CORD GAS ABE A -15.2; CORD GAS HCO3 A 15.8 MMOL/L; CORD GAS HCO3 V 16.7 MMOL/L; CORD GAS O2 SAT A 40.1 %; CORD GAS O2 SAT V 28.6 %; CORD GAS PH A 7.052 UNITS; CORD GAS PH V 7.198 UNITS; CORD GAS PO2 A 23.3 mmHg; CORD GAS PO2 V 17.4 mmHg; CORD GAS SBC A 12.1 MMOL/L; CORD GAS SBC V 14.5 MMOL/L; CORD GAS TCO2 A 17.5 MMOL/L; CORD GAS TCO2 V 18.1 MMOL/L
[2024-02-23] MEDS ORDERED: ONDANSETRON 4MG 2ML VIAL As Ordered ONE (21:00)
[2024-02-23] MEDS ORDERED: ACETAMINOPHEN 1000MG 100ML IV BAG As Ordered ONE (21:00)
[2024-02-23] MEDS ORDERED: LIDOCAINE 2% W/EPINEPHRINE 20ML VIAL **PRES FREE As Ordered ONE (21:00)
[2024-02-23] MEDS ORDERED: fentaNYL 100 MCG/2 ML INJECTION As Ordered ONE (21:00)
[2024-02-23] MEDS ORDERED: TRANEXAMIC ACID 100 MG/ML 10ML VIAL As Ordered ONE (21:00)
[2024-02-23] MEDS ORDERED: METOCLOPRAMIDE INJ 10MG/2ML VIAL As Ordered ONE (21:00)
[2024-02-23] MEDS ORDERED: MORPHINE PRES-FREE INJ 10 MG/10 ML VIAL As Ordered ONE (21:00)
[2024-02-23] MEDS ORDERED: PHENYLephrine 500MCG 5ML (100MCG/ML) SYRINGE As Ordered ONE (21:00)
[2024-02-23] MEDS ORDERED: SODIUM BICARBONATE 8.4% INJ 50MEQ 50ML VIAL As Ordered ONE (21:00)
[2024-02-23] MEDS ORDERED: OXYTOCIN 30UNITS IN 0.9% NaCl 500ML IV BAG As Ordered ONE (21:00)
[2024-02-23] MEDS ORDERED: KETOROLAC 60MG 2ML VIAL As Ordered ONE (21:00)
[2024-02-23] MEDS ORDERED: propofoL 200 MG/20 ML VIAL As Ordered ONE (21:05)
[2024-02-23 21:29] LABS: ALBUMIN 2.8 G/DL (3.2-5.2); ALKALINE PHOSPHATASE 201 U/L (46-116); ALT/SGPT 10 U/L (7.0-40); AST/SGOT 25 U/L (<34); BILIRUBIN,TOTAL 0.3 MG/DL (0.3-1.2); BLOOD UREA NITROGEN 9 MG/DL (9-23); CALCIUM LEVEL 9.9 MG/DL (8.5-10.1); CARBON DIOXIDE LEVEL 18 MMOL/L (20-31); CHLORIDE LEVEL 110 MMOL/L (98-107); CREATININE FOR GFR 0.72 MG/DL (0.55-1.30); GLOMERULAR FILTRATION RATE > 60.0 (>60); GLUCOSE, FASTING 79 MG/DL (60-100); POTASSIUM SERUM 4.3 MMOL/L (3.5-5.1); SODIUM LEVEL 138 MMOL/L (136-145); TOTAL PROTEIN 6.6 G/DL (5.7-8.2)
[2024-02-23] MEDS ORDERED: oxyCODONE 5MG TAB PO PRN (21:30)
[2024-02-23] MEDS ORDERED: DOCUSATE SODIUM 100MG CAPSULE PO PRN (21:30)
[2024-02-23] MEDS ORDERED: SIMETHICONE 80MG CHEW TAB PO PRN (21:30)
[2024-02-24] VITALS (8 sets, daily range): BP systolic 93–115; BP diastolic 52–61; O2SAT 96–99
[2024-02-24] MEDS ORDERED: UNRESOLVED CLARIFICATION ENTRY XX SCH (00:01)
[2024-02-24] MEDS ORDERED: COLA100C5 PO (00:32)
[2024-02-24] MEDS ORDERED: LOVE1INJ2 SC (00:32)
[2024-02-24] MEDS ORDERED: ACET-683 PO (00:32)
[2024-02-24] MEDS ORDERED: IBUP-1022 PO (00:32)
[2024-02-24] MEDS ORDERED: OXYC-517 PO (00:32)
[2024-02-24] MEDS: diphenhydrAMINE 50MG/ML VIAL IV PRN (00:36)
[2024-02-24] MEDS: ACETAMINOPHEN 500 MG TAB PO SCH (02:07)
[2024-02-24] MEDS: KETOROLAC 30 MG/ML 1ML VIAL IV SCH (02:07)
[2024-02-24] MEDS: ENOXAPARIN 30MG/0.3ML SYRINGE (J1650 PER 10MG) SC SCH (05:10)
[2024-02-24] MEDS: ONDANSETRON 4MG 2ML VIAL IV PRN (06:15)
[2024-02-24 08:13] LABS: HEMATOCRIT 24.8 % (36.0-47.0); MEAN CORPUSCULAR HEMOGLOBIN 28.1 pg (27.0-33.0); MEAN CORPUSCULAR HGB CONC 33.1 g/dl (32.0-36.5); MEAN CORPUSCULAR VOLUME 84.9 fl (80.0-96.0); PLATELET COUNT, AUTOMATED 220 10^3/uL (150-450); RED BLOOD COUNT 2.92 10^6/uL (4.00-5.40); WHITE BLOOD COUNT 21.4 10^3/uL (4.0-10.0)
[2024-02-24 08:35] LABS: HEMOGLOBIN 8.2 g/dl (12.0-15.5)
[2024-02-24] MEDS: PRENATAL VITAMINS CHEWABLE TABLET PO SCH (09:18)
[2024-02-24] MEDS: IBUPROFEN 600MG TAB PO SCH (23:42)
[2024-02-25] MEDS: oxyCODONE 5MG TAB PO PRN (01:32)
[2024-02-25 02:00] VITALS: BP 105/61; O2SAT 98
[2024-02-25 06:00] VITALS: BP 104/56; O2SAT 97
[2024-02-25] MEDS: RHO(D) IMMUNE GLOBULIN/MALTOSE 500MCG(2500IU)/2.2ML VIAL (WINRHO) IM SCH (08:16)
[2024-02-25] MEDS: MEASLES,MUMPS,RUBELLA VACCINE INJ (MMR-II) SC.IMMUN ONE (09:00)
[2024-02-25 10:00] VITALS: BP 115/63; O2SAT 96
== END 2024-02-25 11:35 | disposition home or self-care (01) | DRG 788 ==
LOC: M LDI 11:09 → EEVIPCON 11:09 → M OBS 22:39
PROVIDERS: ADMIT Obstetrics & Gynecology; ATTEND Obstetrics & Gynecology
PROC: 10D00Z1 Extraction of Products of Conception, Low, Open Approach (ICD-10-PCS; principal; 2024-02-23 19:39)
DX: O32.4XX0 Maternal care for high head at term, not applicable or unspecified (principal); Z37.0 Single live birth; Z3A.38 38 weeks gestation of pregnancy; O69.82X0 Labor and delivery complicated by other cord entanglement, without compression, not applicable or unspecified; O76 Abnormality in fetal heart rate and rhythm complicating labor and delivery; Z88.2 Allergy status to sulfonamides

== ENCOUNTER → 2024-08-07 | Outpatient (REF) | payer MEDICAID, OTHER ==
[~2024-08-07] MED LIST changes: +ACET-683 PO; +COLA100C5 PO; +HEPA10009 SC; +IBUP-1022 PO; +LOVE1INJ2 SC; +OXYC-517 PO
[2024-08-11 14:06] LABS: HPV APTIMA Detected (Not Detected)
== END ==
LOC: M SFHCWAGY 15:25
PROVIDERS: ATTEND Specialist
DX: N39.0 Urinary tract infection, site not specified (principal); Z12.4 Encounter for screening for malignant neoplasm of cervix

== ENCOUNTER → 2025-02-17 | Outpatient (REF) | payer OTHER, MEDICAID ==
[~2025-02-17] MED LIST changes: -FLOM0.4C39 PO; +TAMS-18 PO
[2025-02-19 15:23] LABS: CANDIDA GLABRATA NAA NOT DETECTED (NOT DETECTED); TRICH VAG BY NAA NOT DETECTED (NOT DETECTED)
[2025-02-19 15:43] LABS: BVAB 2 POSITIVE (NEGATIVE)
[2025-02-19 16:33] LABS: CHLAMYDIA TRACHOMATIS NAA NOT DETECTED (NOT DETECTED)
== END ==
LOC: M SFHCWAGY 16:58
PROVIDERS: ATTEND Advanced Practice Midwife
DX: N76.0 Acute vaginitis (principal)

== ENCOUNTER → 2025-04-29 | Outpatient (REF) | payer OTHER, MEDICAID ==
[~2025-04-29] MED LIST changes: -IBUP-1022 PO; +IBUP600T42 PO
[2025-04-29 13:37] LABS: Trichomonas vaginalis (AMP) NOT DETECTED (NEGATIVE)
[2025-04-29 14:01] LABS: GC DNA AMPLIFICATION NEGATIVE (NEGATIVE)
== END ==
LOC: M SFHCCLAY 07:34
PROVIDERS: ATTEND Nurse Practitioner Family
DX: N89.8 Other specified noninflammatory disorders of vagina (principal)